=== PATIENT | male | born 1985 | race Caucasian/White ===

== ENCOUNTER 2020-04-23 10:23 | Emergency (ER) | payer OTHER ==
[2020-04-23] MEDS ORDERED: CLEOCIN300 MG PO (12:08)
== END 2020-04-23 12:31 | disposition home or self-care (01) ==
LOC: FER 10:23
DX: S01.81XA Laceration without foreign body of other part of head, initial encounter (principal); I10 Essential (primary) hypertension; F17.200 Nicotine dependence, unspecified, uncomplicated; Z23 Encounter for immunization; Z88.2 Allergy status to sulfonamides; W01.190A Fall on same level from slipping, tripping and stumbling with subsequent striking against furniture, initial encounter
CPT/HCPCS: 90471; 90715